=== PATIENT | male | born 1970 | race Caucasian/White ===

== ENCOUNTER 2018-04-17 09:34 | Day surgery (SDC) | payer BC ==
[2018-04-13 09:22] LABS: HEMATOCRIT 41.9 % (37.9-51.0); HEMOGLOBIN 14.2 g/dL (13.5-17.0); MEAN CORPUSCULAR HEMOGLOBIN 30.5 pg (27.0-33.4); MEAN CORPUSCULAR HGB CONC 33.9 g/dL (32.0-36.0); MEAN CORPUSCULAR VOLUME 90 fl (80-97); PLATELET COUNT 285 10^3/uL (150-450); RED BLOOD COUNT 4.65 10^6/uL (4.35-5.55); WHITE BLOOD COUNT 5.7 10^3/uL (4.0-10.5)
[~2018-04-17 09:34] MED LIST: ACETAMINOPHEN 325 MG TABLET PO PRN; CEFAZOLIN 2 GM/D5W RTU 2 GM/50 ML RTUPB IV PRN; RINGERS SOLUTION,LACTATED 1,000 ML IV PRN
[2018-04-17] MEDS ORDERED: MIDAZOLAM 2 MG/2 ML INJ ONE ×2 (10:02→12:47)
[2018-04-17] MEDS ORDERED: LIDOCAINE 2% INJ-PF (20 MG/ML) 10 ML AMPUL ONE (10:02)
[2018-04-17] MEDS ORDERED: FENTANYL CITRATE INJ/PF 100 MCG/2 ML AMPUL ONE (10:02)
[2018-04-17] MEDS ORDERED: PROPOFOL INJ 200 MG/20 ML VIAL IV ONE (10:03)
[2018-04-17] MEDS ORDERED: ONDANSETRON HCL INJ/PF 4 MG/2 ML SDV ONE (10:03)
[2018-04-17] MEDS ORDERED: ACETAMINOPHEN 1,000 MG/100 ML RTUPB IV ONE (10:03)
[2018-04-17] MEDS ORDERED: DEXAMETHASONE SOD PHOSPHATE INJ 4 MG/1 ML VIAL ONE (10:03)
[2018-04-17] MEDS ORDERED: BUPIVACAINE HCL 0.25 % INJ/PF (2.5 MG/1 ML) 30 ML VIAL ONE (10:05)
[2018-04-17] MEDS ORDERED: SUGAMMADEX SODIUM 200 MG/2 ML SDV IV ONE (14:05)
[2018-04-17] MEDS ORDERED: DIPHENHYDRAMINE HCL 50 MG/ML VIAL IV PRN (14:16)
[2018-04-17] MEDS ORDERED: MEPERIDINE HCL/PF INJ 25 MG/1 ML DISP.SYRIN IV PRN (14:16)
[2018-04-17] MEDS ORDERED: MORPHINE SULFATE 10 MG/ML INJ IV PRN (14:16)
[2018-04-17] MEDS ORDERED: FENTANYL CITRATE INJ/PF 100 MCG/2 ML AMPUL IV PRN ×3 (14:16)
[2018-04-17] MEDS ORDERED: PROMETHAZINE HCL INJ 25 MG/1 ML VIAL IV PRN ×2 (14:16)
[2018-04-17] MEDS ORDERED: ONDANSETRON HCL INJ/PF 4 MG/2 ML SDV IV PRN (14:16)
[2018-04-17] MEDS ORDERED: SUCCINYLCHOLINE CHLORIDE INJ 200 MG/10 ML VIAL ONE (15:15)
[2018-04-17] MEDS ORDERED: VECURONIUM BROMIDE INJ 10 MG VIAL IV ONE (15:15)
[2018-04-17] MEDS ORDERED: GLYCOPYRROLATE 1 MG/5 ML SYRINGE ONE (15:15)
--- NOTE | 2018-04-17 15:16 | Discharge Summary ---
Discharge Summary (SDC) - Discharge Final Diagnosis: Incarcerated umbilical hernia. Date of Surgery: 04/17/18 Discharge Date: 04/17/18 Condition: Stable Treatment or Instructions: Discharge home. Diet as tolerated. Activity: No lifting greater than 10 pounds 6 weeks. [place] 10/325 mg p.o. every 6 hours as needed for pain. Okay to shower on Friday. Wash incisions with soap and water. No tub baths or swimming 2 weeks. Referrals: BRANDYN HAINES NP [Primary Care Provider] - Discharge Diet: As Tolerated Respiratory Treatments at Home: Deep Breathing/Coughing, Incentive Spirometer Discharge Activity: No Lifting Over 10 Pounds Home Care Assistance: None Needed Report the Following to Your Physician Immediately: Shortness of Breath, Nausea , Vomiting, Increase in Pain, Fever over 101 Degrees, Unusual Bleeding, Swelling , Warmth
[2018-04-17] MEDS: FENTANYL CITRATE INJ/PF 100 MCG/2 ML AMPUL ONE ×2 (15:19→15:29)
--- NOTE | 2018-04-17 15:27 | Operative Report ---
Nonrecallable Operative Report DATE OF SURGERY: 04/17/18 PREOPERATIVE DIAGNOSIS: Incarcerated umbilical hernia POSTOPERATIVE DIAGNOSIS: Incarcerated umbilical hernia OPERATION: Robot-assisted laparoscopic umbilical hernia repair with mesh. SURGEON: BEE ASHFORD ANESTHESIA: GA TISSUE REMOVED OR ALTERED: None COMPLICATIONS: None apparent ESTIMATED BLOOD LOSS: Minimal PROCEDURE: Drains/implants: [address] hernia mesh. Procedure in detail: After informed consent was obtained, the patient was brought into the operating room and laid in the supine position. The abdomen was prepped and draped in a normal sterile fashion. A 15 blade scalpel was used to create a left upper quadrant incision. Next, a 5 mm trocar was introduced into the abdomen under direct laparoscopic visualization using the Optiview technique. Gas insufflation was attached, and pneumoperitoneum was achieved. Next a 12 mm left lateral trocar and a an 8 mm left lower quadrant trocar were placed under direct laparoscopic visualization. The left upper quadrant 5 mm trocar was replaced for an 8 mm robotic trocar. The robot was then brought over the patient, and docked appropriately. I then assumed my position at the surgeon's console. Attention was turned to the umbilical hernia defect. There was a large amount of preperitoneal fat incarcerated within the umbilical hernia. This was reduced. The abdominal wall was cleared of all preperitoneal periumbilical fat. Once this was completed and 11 cm mesh was chosen to adequately cover the defect. The midline fascia was closed using number 1V lock suture in simple running fashion. Next, the 11 cm round [address]ra light [address] mesh was inserted into the abdomen and apposed to the anterior abdominal wall using the EPS. The mesh was sutured to the anterior abdominal wall using 2-0 nonabsorbable V lock suture. Once this was completed the robot was undocked. The 8 mm trochars were closed using 0 Vicryl suture and the Endo Close device. The 12 mm trocar was removed, and pneumoperitoneum was relieved. The lateral abdominal wall 12 mm trocar site was closed under direct vision using 0 Vicryl suture in [id number] fashion. The overlying skin was closed using 4-0 Vicryl Rapide suture in subcuticular fashion. All sponge, instrument, and needle counts were correct 2. Condition: Stable.
[2018-04-17] MEDS ORDERED: KETOROLAC TROMETHAMINE INJ/PF 30 MG/1 ML SDV ONE (15:29)
[2018-04-17] MEDS ORDERED: MORPHINE SULFATE 10 MG/ML INJ ONE (15:46)
[2018-04-17] MEDS ORDERED: HYDROCODONE/ACETAMINOPHEN 10-325 MG TABLET ONE (16:42)
[2018-04-17] MEDS ORDERED: OXYCODONE HCL IR 5 MG TABLET ONE (17:13)
[2018-04-17 19:20] VITALS: BP 144/97
== END 2018-04-17 18:10 | disposition home or self-care (01) ==
LOC: OROUT 09:34
PROVIDERS: ATTEND Surgery
DX: K42.0 Umbilical hernia with obstruction, without gangrene (principal); Z88.5 Allergy status to narcotic agent; Z79.899 Other long term (current) drug therapy
CPT/HCPCS: 49653; S2900; 36415; 752; 85027; 86850; 86900; 86901; C1781; J0131; J0330; J0690; J1100; J1885; J2250; J2270; J2405; J2704; J3010; J3490